=== PATIENT | female | born 1970 | race Caucasian/White ===

== ENCOUNTER 2016-12-10 17:47 | Emergency (ER) | payer MEDICAID, SELFPAY ==
[~2016-12-10] VITALS: Ht 154.9 cm; Wt 69.5 kg
[2016-12-10] MEDS ORDERED: LAMO25TA5 PO (18:26)
[2016-12-10] MEDS ORDERED: CITA40TA12 PO (18:26)
[2016-12-10] MEDS ORDERED: HYDR50CA PO (18:26)
[2016-12-10] MEDS ORDERED: OXYcodone/APAP 5/325MG TABLET PO ONE (19:00)
[2016-12-10] MEDS ORDERED: OXYcodone/APAP 5/325MG TABLET ONE (19:04)
[2016-12-10 20:00] VITALS: BP 115/67
== END 2016-12-10 20:12 | disposition home or self-care (01) ==
LOC: ED 20:00
DX: M25.551 Pain in right hip (principal); M54.5 Low back pain; F31.9 Bipolar disorder, unspecified; F17.210 Nicotine dependence, cigarettes, uncomplicated; Z88.5 Allergy status to narcotic agent
CPT/HCPCS: 72110; 93005; 99284

== ENCOUNTER 2016-12-23 12:58 | Emergency (ER) | payer MEDICAID ==
[~2016-12-23] VITALS: Ht 154.9 cm; Wt 70.3 kg
[~2016-12-23 12:58] MED LIST: CITA40TA12 PO; HYDR50CA PO; LAMO25TA5 PO
[2016-12-23 13:22] VITALS: BP 98/65
== END 2016-12-23 15:10 | disposition home or self-care (01) ==
LOC: ED 14:40
DX: N76.4 Abscess of vulva (principal); L02.416 Cutaneous abscess of left lower limb; K08.89 Other specified disorders of teeth and supporting structures; Z86.19 Personal history of other infectious and parasitic diseases
CPT/HCPCS: 99283

== ENCOUNTER 2017-01-29 14:55 | Observation (INO) | payer MEDICAID ==
[~2017-01-29] VITALS: Ht 154.9 cm; Wt 77.1 kg
[2017-01-29] MEDS ORDERED: CHLO100T6 PO (15:14)
[2017-01-29 15:50] LABS: ASPARTATE AMINO TRANSFERASE 33 U/L (15-37); BLOOD UREA NITROGEN 18 mg/dL (7-18)
[2017-01-29 15:59] LABS: ACETAMINOPHEN < 2 mcg/mL (10-30)
[2017-01-29 16:09] LABS: DAU SCREEN DISCLAIMER
[2017-01-29] MEDS ORDERED: ONDANSETRON ODT 4 MG PO PRN (18:00)
[2017-01-29] MEDS ORDERED: POLYETHYLENE GLYCOL 17 GM PACKET PO PRN (18:00)
[2017-01-29] MEDS ORDERED: ACETAMINOPHEN 325 MG TABLET PO PRN (18:00)
[2017-01-29] MEDS ORDERED: BISACODYL 10 MG SUPP PR PRN (18:00)
[2017-01-29 18:05] VITALS: BP 108/68
[2017-01-29 20:00] VITALS: BP 93/54
[2017-01-29] MEDS: NICOTINE 14MG/24 HR PATCH.TD24 TD SCH (20:07)
[2017-01-29 23:36] VITALS: BP 96/60
[2017-01-30 03:50] VITALS: BP 98/62
[2017-01-30 08:09] VITALS: BP 90/56
[2017-01-30] MEDS: LAMOTRIGINE 25 MG TABLET PO SCH (08:29)
[2017-01-30] MEDS: SENNA/DOCUSATE TABLET PO SCH (08:29)
[2017-01-30] MEDS: CITALOPRAM 20 MG TABLET PO SCH (08:29)
[2017-01-30] MEDS: hydrOXyzine 50MG TABLET PO SCH (08:29)
[2017-01-30 13:28] LABS: HCG UR OBC PASS
[2017-01-30] MEDS: NICOTINE 14MG/24 HR PATCH.TD24 TD SCH (18:00)
[2017-01-30 19:00] VITALS: BP 104/66
[2017-01-30] MEDS ORDERED: TEMAZEPAM 15 MG CAPSULE PO PRN (21:30)
[2017-01-31] MEDS: LAMOTRIGINE 25 MG TABLET PO SCH ×2 (08:07→20:22)
[2017-01-31] MEDS: SENNA/DOCUSATE TABLET PO SCH (08:08)
[2017-01-31 08:09] VITALS: BP 111/72
[2017-01-31] MEDS: CITALOPRAM 20 MG TABLET PO SCH (08:09)
[2017-01-31] MEDS: hydrOXyzine 50MG TABLET PO SCH (08:09)
[2017-01-31] MEDS ORDERED: LORazepam 1MG TABLET ONE (16:51)
[2017-01-31] MEDS: LORazepam 1MG TABLET PO PRN (16:58)
[2017-01-31] MEDS: NICOTINE 14MG/24 HR PATCH.TD24 TD SCH (16:58)
[2017-01-31 20:17] VITALS: BP 116/69
[2017-02-01 07:33] VITALS: BP 118/81
[2017-02-01] MEDS: LORazepam 1MG TABLET PO PRN ×2 (07:33→12:41)
[2017-02-01] MEDS: CITALOPRAM 20 MG TABLET PO SCH (07:33)
[2017-02-01] MEDS: LAMOTRIGINE 25 MG TABLET PO SCH ×2 (07:33→20:03)
[2017-02-01] MEDS: SENNA/DOCUSATE TABLET PO SCH (07:38)
[2017-02-01] MEDS: NICOTINE 14MG/24 HR PATCH.TD24 TD SCH (18:00)
[2017-02-01 19:02] VITALS: BP 107/62
[2017-02-02 07:15] VITALS: BP_SYST 116; BP_SYST 118; BP_DIAS 71; BP_DIAS 79
[2017-02-02] MEDS ORDERED: POLYETHYLENE GLYCOL 17 GM PACKET PO PRN (07:30)
[2017-02-02] MEDS: SENNA/DOCUSATE TABLET PO SCH (08:05)
[2017-02-02] MEDS: LAMOTRIGINE 25 MG TABLET PO SCH (08:06)
[2017-02-02] MEDS: CITALOPRAM 20 MG TABLET PO SCH (08:06)
[2017-02-02] MEDS: LORazepam 1MG TABLET PO PRN (08:10)
[2017-02-02] MEDS ORDERED: PRAZ1CAP2 PO (11:30)
[2017-02-02] MEDS ORDERED: PRAZOSIN 1 MG CAPSULE PO SCH (21:00)
== END 2017-02-02 13:02 ==
LOC: ED 15:30 → EDIP 17:02 → 3E 17:58
PROVIDERS: ADMIT Family Medicine; ATTEND Family Medicine
DX: T43.3X2A Poisoning by phenothiazine antipsychotics and neuroleptics, intentional self-harm, initial encounter (principal); J45.909 Unspecified asthma, uncomplicated; B18.2 Chronic viral hepatitis C; F31.9 Bipolar disorder, unspecified; D72.829 Elevated white blood cell count, unspecified; E44.1 Mild protein-calorie malnutrition; F17.203 Nicotine dependence unspecified, with withdrawal; F41.9 Anxiety disorder, unspecified; K59.00 Constipation, unspecified; Y92.89 Other specified places as the place of occurrence of the external cause; Z90.49 Acquired absence of other specified parts of digestive tract
CPT/HCPCS: 36415; 80053; 80307; 80329; 81025; 84703; 85025; 93005; 99285; G0378; Q0177; G0480

== ENCOUNTER 2017-04-27 15:17 | Emergency (ER) | payer MEDICAID ==
[~2017-04-27] VITALS: Ht 154.9 cm; Wt 70.8 kg
[~2017-04-27 15:17] MED LIST changes: +CHLO100T6 PO; +PRAZ1CAP2 PO
[2017-04-27 15:22] VITALS: BP 111/73
[2017-04-27 15:57] LABS: HEMATOCRIT 42.3 % (34.6-47.8); HEMOGLOBIN 13.9 g/dL (11.7-16.4); WHITE BLOOD COUNT 8.9 x10^3/uL (3.4-10)
[2017-04-27 16:10] LABS: BLOOD UREA NITROGEN 10 mg/dL (7-18)
[2017-04-27 16:14] LABS: ASPARTATE AMINO TRANSFERASE 11 U/L (15-37)
[2017-04-27] MEDS ORDERED: SULFAMETH./TRIMETHOPRIM DS 800MG/160MG TABLET ONE (17:18)
[2017-04-27] MEDS ORDERED: SULFAMETH./TRIMETHOPRIM DS 800MG/160MG TABLET PO ONE (17:30)
== END 2017-04-27 17:40 | disposition home or self-care (01) ==
LOC: ED 17:34
DX: S50.01XA Contusion of right elbow, initial encounter (principal); L02.413 Cutaneous abscess of right upper limb; F31.9 Bipolar disorder, unspecified; F17.210 Nicotine dependence, cigarettes, uncomplicated; X58.XXXA Exposure to other specified factors, initial encounter; Y93.89 Activity, other specified; Y92.89 Other specified places as the place of occurrence of the external cause; Y99.8 Other external cause status
CPT/HCPCS: 36415; 80053; 85025; 99285

== ENCOUNTER 2017-06-01 06:02 | Emergency (ER) | payer MEDICAID ==
[~2017-06-01] VITALS: Ht 162.6 cm; Wt 70.5 kg
[2017-06-01] MEDS ORDERED: ONDANSETRON ODT 4 MG ONE (06:27)
[2017-06-01] MEDS ORDERED: FAMOTIDINE 20 MG TABLET ONE (06:27)
[2017-06-01] MEDS ORDERED: ONDANSETRON ODT 4 MG PO ONE (06:30)
[2017-06-01] MEDS ORDERED: FAMOTIDINE 20 MG TABLET PO ONE (06:30)
[2017-06-01 06:59] VITALS: BP 136/65
[2017-06-01] MEDS ORDERED: LOPERAMIDE 2 MG CAPSULE PO ONE (07:30)
[2017-06-01] MEDS ORDERED: LOPERAMIDE 2 MG CAPSULE ONE (07:46)
== END 2017-06-01 08:18 | disposition home or self-care (01) ==
LOC: ED 06:18
DX: A08.4 Viral intestinal infection, unspecified (principal); F17.210 Nicotine dependence, cigarettes, uncomplicated; J44.9 Chronic obstructive pulmonary disease, unspecified
CPT/HCPCS: 99284; Q0162

== ENCOUNTER 2017-08-14 06:20 | Emergency (ER) | payer MEDICAID ==
[~2017-08-14] VITALS: Ht 154.9 cm; Wt 72.0 kg
[2017-08-14 06:25] VITALS: BP 112/62
[2017-08-14] MEDS ORDERED: DIPHENHYDRAMINE 50 MG/ML, 1ML ONE (06:40)
[2017-08-14] MEDS ORDERED: KETOROLAC 30 MG/1 ML ONE (06:40)
[2017-08-14 06:51] LABS: BASOPHILS # (AUTO) 0.03 x10^3/uL (0-0.1); BASOPHILS % (AUTO) 0 % (0-1); EOSINOPHILS # (AUTO) 0.05 x10^3/uL (0-0.4); EOSINOPHILS % (AUTO) 0 % (1-7); LYMPHOCYTES # (AUTO) 2.57 x10^3/uL (1-3.4); LYMPHOCYTES % (AUTO) 15 % (22-44); MD NO; MEAN CORPUSCULAR HEMOGLOBIN 26.7 pg (27.0-34.8); MEAN CORPUSCULAR HGB CONC 32.8 g/dL (32.4-35.8); MEAN CORPUSCULAR VOLUME 81.5 fL (80-100); MEAN PLATELET VOLUME 7.5 fL (7.4-10.4); MONOCYTES # (AUTO) 1.15 x10^3/uL (0.2-0.8); MONOCYTES % (AUTO) 7 % (2-9); NEUTROPHILS # (AUTO) 13.68 x10^3/uL (1.8-6.8); NEUTROPHILS % (AUTO) 78 % (42-75); PLATELET COUNT 262 x10^3/uL (130-400); RED BLOOD COUNT 5.09 x10^6/uL (3.82-5.3); RED CELL DISTRIBUTION WIDTH 17.9 % (9.6-15.2)
[2017-08-14] MEDS ORDERED: methylPREDNISolone SOD SUCC 125 MG/2 ML ONE (06:57)
[2017-08-14] MEDS ORDERED: methylPREDNISolone SOD SUCC 125 MG/2 ML IVPush SCH (07:00)
[2017-08-14] MEDS ORDERED: ALBUTEROL/IPRATROPIUM 2.5MG/0.5MG, 3 ML NPPB ONE (07:00)
[2017-08-14] MEDS ORDERED: KETOROLAC 30 MG/1 ML IVPush ONE (07:00)
[2017-08-14] MEDS ORDERED: SODIUM CHLORIDE 0.9% 1,000ML IVBOLUS ONE (07:00)
[2017-08-14] MEDS ORDERED: DIPHENHYDRAMINE 50 MG/ML, 1ML IVPush ONE (07:00)
[2017-08-14] MEDS ORDERED: SODIUM CHLORIDE FLUSH 10ML SYR IVF ONE (07:00)
[2017-08-14] MEDS ORDERED: ALBUTEROL/IPRATROPIUM 2.5MG/0.5MG, 3 ML ONE (07:01)
[2017-08-14 07:02] LABS: ALANINE AMINOTRANSFERASE 44 U/L (12-78); ALBUMIN 3.2 g/dL (3.4-5.0); ANION GAP 7 mmol/L (5-15); CALCIUM 8.3 mg/dL (8.5-10.1); CHLORIDE 105 mmol/L (98-107); CREATININE 0.84 mg/dL (0.55-1.02)
[2017-08-14 07:05] LABS: INTERNATIONAL NORMALIZED RATIO 0.94 (0.93-1.1); PARTIAL THROMBOPLASTIN TIME 24 Seconds (25-31); PROTHROMBIN TIME 9.8 Seconds (9.6-11.5)
[2017-08-14 07:06] LABS: ALKALINE PHOSPHATASE 78 U/L (45-117); BILIRUBIN,TOTAL 0.7 mg/dL (0.2-1.0); TOTAL PROTEIN 7.2 g/dL (6.4-8.2); TROPONIN I < 0.015 ng/mL (0.000-0.045)
[2017-08-14 07:07] LABS: D-DIMER < 0.19 ug/mlFEU (0.00-0.52)
[2017-08-14] MEDS ORDERED: MORPHINE SULFATE 4 MG/ML, 1ML ONE (08:40)
[2017-08-14] MEDS ORDERED: morphine SULFATE 10 MG/ML, 1ML IVPush ONE (09:00)
== END 2017-08-14 09:31 | disposition home or self-care (01) ==
LOC: ED 06:58
DX: J45.909 Unspecified asthma, uncomplicated (principal); J40 Bronchitis, not specified as acute or chronic; J44.9 Chronic obstructive pulmonary disease, unspecified; F17.200 Nicotine dependence, unspecified, uncomplicated; Z90.49 Acquired absence of other specified parts of digestive tract
CPT/HCPCS: 36415; 71045; 80053; 83880; 84484; 85025; 85379; 85610; 85730; 93005; 94640; 96361; 96374; 96375; 99285; J1200; J1885; J2270; J2930; J7030; J7620

== ENCOUNTER 2017-10-18 12:19 | Emergency (ER) | payer MEDICAID ==
[~2017-10-18] VITALS: Ht 172.7 cm; Wt 86.0 kg
[2017-10-18] MEDS ORDERED: PARO20TA98 PO (12:35)
[2017-10-18] MEDS ORDERED: BUSP30TA PO (12:38)
[2017-10-18] MEDS ORDERED: CHLO25TA4 PO (12:38)
[2017-10-18] MEDS ORDERED: LAMO200T4 PO (12:38)
[2017-10-18] MEDS ORDERED: ALBU8.5H8 INH (12:38)
[2017-10-18] MEDS ORDERED: ALBUTEROL/IPRATROPIUM 2.5MG/0.5MG, 3 ML ONE ×2 (12:52→13:47)
[2017-10-18] MEDS ORDERED: ALBUTEROL/IPRATROPIUM 2.5MG/0.5MG, 3 ML NPPB ONE (13:00)
[2017-10-18] MEDS ORDERED: ALBUTEROL SULFATE 2.5 MG/3 ML NPPB ONE (14:00)
[2017-10-18 14:29] VITALS: BP 133/63
== END 2017-10-18 14:32 | disposition home or self-care (01) ==
LOC: ED 14:07
DX: J44.1 Chronic obstructive pulmonary disease with (acute) exacerbation (principal); F17.200 Nicotine dependence, unspecified, uncomplicated; Z90.49 Acquired absence of other specified parts of digestive tract; F31.9 Bipolar disorder, unspecified; Z86.19 Personal history of other infectious and parasitic diseases
CPT/HCPCS: 71046; 93005; 94640; 99284; J7512; J7613; J7620